=== PATIENT | male | born 1980 | race Caucasian/White ===

== ENCOUNTER 2021-10-27 08:33 | Outpatient (CLI) | payer MEDICAID, SELFPAY ==
--- NOTE | 2021-10-27 13:58 | PFTS_ITS ---
Date of Study:10/27/21 Date of Dictation: MECHANICS: Forced vital capacity (FVC) is normal. Forced expiratory volume in one second (FEV1) is normal. FEV1/FVC is normal. FLOW VOLUME LOOP: Variable airflow obstruction of the inspiratory loop. The mid expiratory flow is higher than mid inspiratory flow. LUNG VOLUMES: Total lung capacity (TLC) is normal. Residual volume (RV) is increased. DIFFUSING CAPACITY FOR CARBON MONOXIDE: Normal. INTERPRETATION: The prebronchodilator spirometry is normal. No postbronchodilator spirometry was performed. The flow-volume loop reveals variable inspiratory flow obstruction. The mid expiratory flow is higher than mid inspiratory flow, which is also suggestive of variable inspiratory flow obstruction. Lung volumes are normal. Gas exchange (DLCO) is normal. MTDD
== END 2021-10-27 08:34 | disposition home or self-care (01) ==
PROVIDERS: Visit Provider Family Medicine
DX: R06.00 Dyspnea, unspecified (principal)
CPT/HCPCS: 94010; 94726; 94729

== ENCOUNTER → 2021-11-14 09:20 | Outpatient (BNVA) | payer MEDICAID, SELFPAY | PROVIDERS: PCP Family Medicine; Visit Provider Internal Medicine | DX: R06.09 Other forms of dyspnea; M79.89 Other specified soft tissue disorders; R42 Dizziness and giddiness; K14.8 Other diseases of tongue; G47.19 Other hypersomnia; R94.2 Abnormal results of pulmonary function studies; R73.03 Prediabetes; F17.220 Nicotine dependence, chewing tobacco, uncomplicated; F15.90 Other stimulant use, unspecified, uncomplicated; Z79.891 Long term (current) use of opiate analgesic; Z68.38 Body mass index [BMI] 38.0-38.9, adult; G47.30 Sleep apnea, unspecified; R06.02 Shortness of breath; D71 Functional disorders of polymorphonuclear neutrophils; Q25.46 Tortuous aortic arch | CPT/HCPCS: 36415; 71046; 83835; 84305; 84439; 84443; 99203; 99204 ==

== ENCOUNTER → 2021-11-28 12:25 | Outpatient (BNVA) | payer MEDICAID, SELFPAY | PROVIDERS: PCP Family Medicine; Referring Provider Internal Medicine Pulmonary Disease; Visit Provider Otolaryngology | DX: J98.8 Other specified respiratory disorders (principal); J34.89 Other specified disorders of nose and nasal sinuses; M95.0 Acquired deformity of nose; J32.0 Chronic maxillary sinusitis; J35.1 Hypertrophy of tonsils; K13.79 Other lesions of oral mucosa; Q38.2 Macroglossia; E66.9 Obesity, unspecified; Z68.39 Body mass index [BMI] 39.0-39.9, adult | CPT/HCPCS: 31575; 99204 ==

== ENCOUNTER 2022-01-19 09:03 | Outpatient (CLI) | payer MEDICAID, SELFPAY ==
--- NOTE | 2022-01-19 | ECG_ITS ---
[facility] Test Date: 2022-01-19 Pat Name: Eugene Escobar Department: Room: Gender: Male Core Sticker: : [id number] Requested By: Liu Gomez Order Number: [id number] Peterson MD: Britton Heck M.D. Interpretive Statements NAME OF STUDY: EXERCISE SESTAMIBI STRESS TEST INDICATION: [Chest Pain, ] EXERCISE DATA: The patient was exercised by Bart protocol. Baseline heart rate was 84 beats per minute. Baseline blood pressure was 116/86 millimeters of mercury. Target heart rate was 152 beats per minute. Maximum heart rate achieved was 171, which was 112% of the target heart rate. Maximum blood pressure was 208/90 millimeters of mercury. Total exercise time was 7 minutes. Maximum METs achieved was 10.2. The reason for ending the test was target heart rate achieved. The patient complained of shortness of breath during exercise phase. He complained of left arm tingling associated with lightheadedness. Patient became diaphoretic and pale. ELECTROCARDIOGRAM: BASELINE: Showed sinus rhythm, normal axis, T wave inversions in inferior leads. EXERCISE: At the peak exercise level, T wave inversions became more prominent in inferior leads. Borderline ST depressions also noted in inferior leads and leads V5???V6. RECOVERY: During the recovery period, heart rate dropped appropriately. ST T wave changes improved. CONCLUSION: 1. Exercise capacity good. 2. Heart rate response was appropriate. 3. Blood pressure response was appropriate. 4. Symptoms were significant and concerning for possible ischemia though no typical chest pain noted. 5. Electrocardiogram portion of the stress test is indeterminate because of baseline EKG changes but concerning for ischemia given significant symptoms and borderline ST depressions and worsening T wave inversions on exercise. 6. Nuclear scan will be documented separately. Electronically Signed On 01-20-2022 10:03:06 CDT by Britton Heck M.D. [email or web address]
--- NOTE | 2022-01-19 09:24 | NMCV_ITS ---
NM roselyn perf SPECT r/s* [id number] Eugene Escobar Age: 41 Gender: M : 1980 Exam Date: 01/19/2022 10:16 Ordering Phys: Liu Gomez D.O., D.O. Technologist: JEFFREY Gonzalez Exam Location: [facility] Indications: CHEST PAIN STRESS TEST Please see separate stress test report in [facility] for full findings IMAGE PROTOCOL Rest/Stress 1 Exercise Day Radiopharmaceutical Dose (mCi) Administration Site Administered by Rest: Tc-99m 10.7 IV JEFFREY Andrade Sestamieugenie Stress:Tc-99m 33.0 IV JEFFREY Andrade Sestamieugenie Rest: 19-Jan-2022 60 Discovery 630 Stress: 19-Jan-2022 30 Discovery 630 Radiopharmaceutical was injected at 87 % maximum heart rate. Images obtained in supine and prone position. SPECT RESULTS Technical Quality: Excellent Raw Data Analysis: Normal Image Corrections: No attenuation or motion correction applied Summed Stress Score: 0 Summed Rest Score: 3 Summed Difference Score: 0 PERFUSION FINDINGS There is reduced radiotracer uptake noted at rest images in inferoseptal and inferoseptal negron. This improves with stress images. Likely attenuation artifact. No significant area of ischemia seen. FUNCTIONAL RESULTS (calculated via Gated SPECT) Stress Image LV EF (%): 75 Stress EDV (mL):155 TID: 0.97 Stress ESV (mL):39 FUNCTIONAL FINDINGS: LV systolic function is normal IMPRESSIONS 1. Attenuation artifact is noted in inferoseptal and anteroseptal negron. No significant area of ischemia noted. 2. LV systolic function is normal Britton Heck MD (Electronically Signed) Final Date: 19 January 2022 12:09 S
[2022-01-19 09:39] VITALS: BMI 39.4
[2022-01-19 10:20] VITALS: BP 146/85; PULSE 81
[2022-01-19 14:17] VITALS: BP 147/104; PULSE 119
--- NOTE | 2022-01-19 14:18 | PC.NURSE ---
LATE ENTRY: 1131 At the completion of the treadmill portion of the stress test this nurse called Dr. Heck to report the patients symptoms while exercising. Dr. Heck will look at the EKGs and wait for the completion of the Nuclear portion of the test and get back to this nurse. 1225 The patient was placed in CPRU room #[address] Heck discussed with the two of them that no intervention is needed today based on the results of the stress test. He will be scheduled as an OP for a LHC pending insurance approval. Dr. Heck voiced to the both of them that his nurse would call in a script for Nitroglycerin and that he would be notified of the date for lab work and LHC. They both voiced their understanding. The right AC PIV was discontinued by this nurse and the patient was DC'd home.
== END 2022-01-19 09:04 | disposition home or self-care (01) ==
LOC: CDL 09:05
PROVIDERS: PCP Family Medicine; Visit Provider Family Medicine
DX: R07.9 Chest pain, unspecified (principal)
CPT/HCPCS: 78452; 93017; A9500

== ENCOUNTER 2022-01-23 20:00 | Outpatient (CLI) | payer MEDICAID, SELFPAY | END 2022-01-23 20:01 | disposition home or self-care (01) | LOC: SLEEP 01-24 08:09 | PROVIDERS: PCP Family Medicine; Visit Provider Internal Medicine Pulmonary Disease | DX: G47.19 Other hypersomnia (principal); R06.83 Snoring; R53.83 Other fatigue; G47.33 Obstructive sleep apnea (adult) (pediatric) | CPT/HCPCS: 95811 ==

== ENCOUNTER 2022-01-30 13:05 | Outpatient (CLI) | payer MEDICAID, SELFPAY ==
--- NOTE | 2022-01-30 13:45 | USCV_ITS ---
Eugene Escobar Age: 41 Gender: M : 1980 Exam Date: 01/30/2022 13:43 Ordering Phys: Liu Gomez D.O., D.O. Technologist: Sharona Thorne [place]am [place] [facility] [place]ication: Chest pain BP: 148 / 90 HR: 81 Rhythm: Sinus Technical Quality: Adequate MEASUREMENTS (Male / Female) Normal Values 2D ECHO LV Diastolic Diameter PLAX 4.5 cm 4.2 - 5.9 / 3.9 - 5.3 cm LV Systolic Diameter PLAX 2.4 cm IVS Diastolic Thickness 1.6 cm 0.6 - 1.0 / 0.6 - 0.9 cm IVS Systolic Thickness 2.4 cm LVPW Diastolic Thickness 1.5 cm 0.6 - 1.0 / 0.6 - 0.9 cm LVPW Systolic Thickness 2.3 cm LVOT Diameter 2.4 cm LV Ejection Fraction 2D Teich 78.6 % LV Ejection Fraction MOD 2C 52.9 % LV Ejection Fraction 2C AL 54.1 % LA Diameter 3.0 cm LA Width 3.8 cm LA Height 6.0 cm RA Width 2.8 cm RA Height 4.9 cm Aorta at Sinotubular Diameter 2.8 cm IVC Diameter 1.5 cm M-MODE MV E Point Septal Separation 0.3 cm DOPPLER AV Peak Velocity 139.0 cm/s LVOT Peak Velocity 117.0 cm/s AV Area Cont Eq vti 3.7 cm squared AV Area Cont Eq pk 3.7 cm squared MV Peak Velocity 87.0 cm/s MV Area PHT 2.3 cm squared Mitral E to A Ratio 1.0 MV E' Velocity 46.0 cm/s Mitral E to MV E' Ratio 7.3 Mitral E to LV E' Lateral Ratio 5.1 Mitral E to LV E' Septal Ratio 12.9 TR Peak Velocity 85.0 cm/s TR Peak Gradient 2.9 mmHg Right Atrial Pressure 3.0 mmHg Pulmonary Artery Systolic Pressu 5.9 mmHg RV Acceleration Time 0.1 s RV Ejection Time 0.3 s RV AcT/ET 0.4 FINDINGS Left Ventricle Normal left ventricular size, systolic function and wall thickness, with no regional wall motion abnormalities. Left ventricular ejection fraction is estimated at 60 %. Normal diastolic function. Right Ventricle Normal right ventricular size and systolic function. Right Atrium Normal right atrial size. Left Atrium Normal left atrial size. Mitral Valve Structurally normal mitral valve. No mitral valve stenosis. No mitral valve regurgitation. Aortic Valve Structurally normal trileaflet aortic valve. No aortic valve stenosis. No aortic valve regurgitation. Tricuspid Valve Structurally normal tricuspid valve. No tricuspid valve stenosis. Trace tricuspid valve regurgitation. Pulmonic Valve Pulmonic valve not well visualized. No pulmonary valve stenosis. Trace pulmonary valve regurgitation. Pericardium No pericardial effusion. Aorta Normal size aortic root and proximal ascending aorta. IVC Normal IVC dimension with >50% respiratory change of the inferior vena cava. CONCLUSIONS 1. Normal left ventricular size, systolic function and wall thickness, with no regional wall motion abnormalities. Left ventricular ejection fraction is estimated at 60 %. Normal diastolic function. 2. Normal right ventricular size and systolic function. 3. No significant valvular abnormality. 4. No prior similar studies to compare. Anna Newell MD (Electronically Signed) Final Date: 06 February 2022 08:48 S
== END 2022-01-30 13:06 | disposition home or self-care (01) ==
LOC: RAD 13:06
PROVIDERS: PCP Family Medicine; Visit Provider Family Medicine
DX: R07.9 Chest pain, unspecified (principal)
CPT/HCPCS: 93306

== ENCOUNTER 2022-02-02 09:03 | Outpatient (CLI) | payer MEDICAID, SELFPAY ==
--- NOTE | 2022-02-02 08:45 | MR_ITS ---
WS: [id number] MRI HEAD WITHOUT AND WITH GADOLINIUM ENHANCEMENT WITH ATTENTION TO THE PITUITARY. TECHNIQUE: Sagittal T1, T2 axial, T2 axial FLAIR, axial susceptibility weighted imaging, axial diffus ion weighted images, and coronal T2 images were obtained. Pre and post-T1 axial and post T1 coronal i mages. ADC and FSPGR images. Pituitary protocol with high-resolution pituitary imaging. Post gadolini um and dynamic post gadolinium pituitary imaging. 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 Normal cavernous sinuses and Meckel's cave. Bony alyce deling expansion of the sella with peripherally enhancing intracellular solid pituitary lesion measur ing approximately 1.5 x 1.5 x 1.4 cm AP by transverse by craniocaudal. Small amount of suprasellar ex tension. Normal pituitary infundibulum and optic chiasm. No evidence of restricted diffusion to suggest acute ischemia. Ventricular system and basal cisterns are patent. No other suspicious intracranial signal abnormalities. No extra-axial fluid collections. Normal posterior fossa. Normal vascular flow voids at the skull base. Paranasal sinuses are well aera joel. Mild mucosal thickening RIGHT mastoid air cells. No hemosiderin on susceptibly weighted images. Temporal lobes and hippocampal formations are normal in appearance. MR/MR pituitary wo/w con* [id number] IMPRESSION: 1. Peripheral enhancing intrasellar lesion measuring 1.5 x 1.5 x 1.3 cm with s light suprasellar extension. 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 Recommend neurosurgery consultation. 2. Normal optic chiasm and pituitary infundibulum. 3. Normal cavernous sinuses and Meckel's cave. 4. No other suspicious intracranial signal abnormalities. 5. Mild mucosal thickening RIGHT mastoid air cells. 6. No other suspicious findings.
[2022-02-02] MEDS: gadobenate dimeglumine 20 mL vial IV (10:07)
== END 2022-02-02 09:04 | disposition home or self-care (01) ==
LOC: RAD 09:04
PROVIDERS: PCP Family Medicine; Visit Provider Internal Medicine Pulmonary Disease
DX: E22.0 Acromegaly and pituitary gigantism (principal); H53.489 Generalized contraction of visual field, unspecified eye; K14.8 Other diseases of tongue; M79.89 Other specified soft tissue disorders; R42 Dizziness and giddiness
CPT/HCPCS: 70553

== ENCOUNTER → 2024-03-21 09:40 | Outpatient (BNVA) | payer MEDICAID, SELFPAY | PROVIDERS: PCP Family Medicine; Referring Provider Family Medicine; Visit Provider Internal Medicine | DX: D35.2 Benign neoplasm of pituitary gland (principal); E22.0 Acromegaly and pituitary gigantism; R51.9 Headache, unspecified; H53.9 Unspecified visual disturbance | CPT/HCPCS: 82024; 82533; 83001; 83002; 83520; 84146; 84305; 84403; 84439; 84443 ==

== ENCOUNTER 2024-03-27 14:14 | Outpatient (CLI) | payer MEDICAID, SELFPAY ==
--- NOTE | 2024-03-27 14:30 | MR_ITS ---
WS: [id number] MRI BRAIN WITHOUT AND WITH CONTRAST, ATTENTION DIRECTED TO THE PITUITARY GLAND HISTORY: headaches and vision changes COMPARISON: 02/02/2022 TECHNIQUE: Diffusion-weighted imaging, axial T2 sequence, and postcontrast images in 3 planes are per formed. High-resolution coronal and sagittal imaging performed through the pituitary region with and without intravenous gadolinium. Quality of this examination is significantly compromised by motion artifact. Patient was unable to re main awake for this examination despite multiple reminders. Limited detail of the intrasellar mass. The mass identified in the sella turcica with mild bony expan rhett measures 1.6 x 1.5 x 1.3 cm which is very similar in size as compared to 02/02/2022. Unfortunate ly very little other detail. Cannot confirm extension beyond the sella turcica or encasement of the c arotid arteries. The overall size and position appears similar to the prior exam. The remaining brain is nondiagnostic for additional areas of abnormal enhancement or mass. Diffusion weighted imaging is normal. No midline shift. No inferior displacement of the cerebellar tonsils. MR/MR pituitary wo/w con* [id number] IMPRESSION: 1. MRI evaluation pituitary gland is significantly limited by motion. Patient was unable to remain awake for this examination despite numerous attempts and r epeat imaging. 2. Intrasellar mass is similar in size to the prior study measuring 1.6 x 1.5 x 1.3 cm. Additional more specific detail cannot be elucidated. Cannot evaluate for encasement of the carotid arteries or for significant displacement of the infundibulum or optic chiasm.
== END 2024-03-27 14:15 | disposition home or self-care (01) ==
LOC: RAD 14:15
PROVIDERS: PCP Family Medicine; Visit Provider Internal Medicine
DX: D35.2 Benign neoplasm of pituitary gland (principal); E22.0 Acromegaly and pituitary gigantism; R51.9 Headache, unspecified
CPT/HCPCS: 70553; A9577